=== PATIENT | male | born 1995 | race Caucasian/White ===

== ENCOUNTER 2021-03-12 08:45 | Emergency (ER) | payer BC ==
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
[2021-03-12] MEDS ORDERED: Acetaminophen/oxyCODONE 325-5 MG Tab PO ONE (10:03)
== END 2021-03-12 10:30 | disposition home or self-care (01) ==
LOC: MW.ED 08:45
DX: R07.81 Pleurodynia (principal); Z72.0 Tobacco use
CPT/HCPCS: 71101; 99283; A9270